=== PATIENT | male | born 1955 | race Caucasian/White ===

== ENCOUNTER 2023-10-16 14:22 | Emergency (ER) | payer MEDICARE ==
[~2023-10-16] VITALS: Ht 182.9 cm; Wt 105.5 kg
[2023-10-16] MEDS ORDERED: Ketorolac 30 MG/ML VIAL IM ONE (16:45)
[2023-10-16] MEDS ORDERED: Orphenadrine 60 MG/2ML AMP IM ONE (16:45)
[2023-10-16] MEDS ORDERED: ASPIRIN E.C. 8181 MG (17:15)
[2023-10-16] MEDS ORDERED: PANCREAZE DR 11 EAC1 PO (17:16)
[2023-10-16] MEDS ORDERED: ESOMEPRAZOLE MA40 M1 PO (17:16)
[2023-10-16] MEDS ORDERED: LIPITOR 10M10 MG/TAB PO (17:17)
[2023-10-16] MEDS ORDERED: SERTRALINE HCL200 MG PO (17:17)
[2023-10-16] MEDS ORDERED: ALBUTEROL SULFAT4 M1 PO (17:18)
[2023-10-16] MEDS ORDERED: SINGULAIR 110 MG/TAB PO (17:19)
[2023-10-16] MEDS ORDERED: EXELON13.3 MG/24 TD (17:19)
[2023-10-16] MEDS ORDERED: MIRALAX17 GM PO (17:19)
[2023-10-16] MEDS ORDERED: MEMANTINE HCL10 MG PO (17:20)
[2023-10-16] MEDS ORDERED: FLUTICASONE P15.8 ML NS (17:20)
[2023-10-16] MEDS ORDERED: FLECAINIDE ACET50 MG PO (17:21)
[2023-10-16] MEDS ORDERED: FLOMAX0.4 MG PO (17:21)
[2023-10-16] MEDS ORDERED: OXYCODONE HCL10 M1 PO (17:21)
[2023-10-16] MEDS ORDERED: KLONOPIN 1MG1 MG PO (17:22)
[2023-10-16] MEDS ORDERED: MELATONIN10 M2 PO (17:23)
[2023-10-16] MEDS ORDERED: ZOFRAN ODT4 MG PO (17:23)
[2023-10-16] MEDS ORDERED: TRIDERM28.4 GM TP (17:24)
[2023-10-16] MEDS ORDERED: BAQSIMI3 MG (17:25)
[2023-10-16] MEDS ORDERED: CYCLOBENZAPRINE10 M1 PO (17:27)
[2023-10-16 17:36] VITALS: BP 133/67
== END 2023-10-16 17:32 | disposition home or self-care (01) ==
LOC: ED 14:22
DX: S16.1XXA Strain of muscle, fascia and tendon at neck level, initial encounter (principal); M62.838 Other muscle spasm; Z87.891 Personal history of nicotine dependence; W18.30XA Fall on same level, unspecified, initial encounter; W22.8XXA Striking against or struck by other objects, initial encounter
CPT/HCPCS: J1885; J2360